=== PATIENT | male | born 1955 | race Caucasian/White ===

== ENCOUNTER → 2018-12-10 14:01 | Outpatient (CLI) | payer OTHER ==
[2011-09-09 12:57] VITALS: BMI 34.4
--- NOTE | 2018-12-17 13:56 | ST ---
PATIENT:MARÍA SAVAGE MEDICAL RECORD: [id number] SEX: M LOCATION:[facility] ORDER #: ADMISSION DATE: 12/10/18 AGE OF PATIENT: 63 REFERRING PHYSICIAN: INTERPRETING PHYSICIAN: ROSA CHOW MD DATE OF SERVICE: 12/10/2018 PROCEDURE: Treadmill stress test. TECHNIQUE: Baseline ECG is normal. Exercised for 10 minutes on Castillo protocol. Maximum heart rate 115 beats per minute, greater than 100% maximum predicted. No ECG changes of ischemia. No symptoms of ischemia. Normal blood pressure response to exercise. No arrhythmias noted. Good exercise tolerance for age. TRANSINT:[id number] Voice Confirmation ID: [id number] DOCUMENT ID: [id number] ROSA CHOW MD at 1356 CC: [id number] DICTATION DATE: 12/11/18 1318 LAST PULLER: 12/11/18 1334 DEP CLI 12/10/18 [id number] [place] [id number]
== END | disposition home or self-care (01) ==
LOC: D.HCCARDIO 14:01
PROVIDERS: ATTEND Internal Medicine Interventional Cardiology
DX: I25.10 Atherosclerotic heart disease of native coronary artery without angina pectoris (principal)